=== PATIENT | female | born 1965 | race Caucasian/White ===

== ENCOUNTER 2018-01-12 18:36 | Emergency (ER) | payer BC ==
[~2018-01-12] VITALS: Ht 177.8 cm; Wt 59.1 kg
[~2018-01-12 18:36] MED LIST: Z.0.NO CURRENT MEDS
[2018-01-12 18:40] VITALS: BP 151/95; PULSE 114; RESP 18; TEMP 97.8; O2SAT 98
--- NOTE | 2018-01-12 20:09 | RADRPT ---
EXAM DATE/TIME: 01/12/2018 19:22 [facility] COMPARISON: No previous studies available for comparison. INDICATIONS : Syncope. MEDICAL HISTORY : None. SURGICAL HISTORY : ORIF left hip. ENCOUNTER: Initial ACUITY: 1 day PAIN SCORE: Non-responsive. LOCATION: Bilateral chest FINDINGS: PA and lateral views of the chest demonstrate the lungs to be symmetrically aerated without evidence of mass, infiltrate or effusion. The cardiomediastinal contours are unremarkable. Osseous structure s are intact. CONCLUSION: No acute disease. Felipe Fernandez MD on January 12, 2018 at 20:06 Board Certified Radiologist. This report was verified electronically.
--- NOTE | 2018-01-12 20:11 | RADRPT ---
EXAM DATE/TIME: 01/12/2018 19:27 [facility] COMPARISON: No previous studies available for comparison. INDICATIONS : Left sided hip pain after fall. MEDICAL HISTORY : None. SURGICAL HISTORY : ORIF left hip. ENCOUNTER: Initial ACUITY: 1 day PAIN SCORE: 4/10 LOCATION: Pelvis. FINDINGS: A single frontal view of the pelvis demonstrates lag screw fixation proximal left femur. No acute fra cture or dislocation. No bony destructive changes. CONCLUSION: 1. Fixation proximal left femur. No acute bony abnormality is present. Felipe Fernandez MD on January 12, 2018 at 20:07 Board Certified Radiologist. This report was verified electronically.
--- NOTE | 2018-01-12 20:12 | RADRPT ---
EXAM DATE/TIME: 01/12/2018 19:28 [facility] COMPARISON: No previous studies available for comparison. INDICATIONS : Left hip pain after fall. MEDICAL HISTORY : None. SURGICAL HISTORY : ORIF left hip. ENCOUNTER: Initial ACUITY: 1 day PAIN SCORE: 5/10 LOCATION: Left femur. FINDINGS: Two view examination of the left femur demonstrates a screw fixation proximal left femur. No acute nitesh ny abnormality. CONCLUSION: 1. Fixation proximal left femur. No acute bony abnormality. Felipe Fernandez MD on January 12, 2018 at 20:08 Board Certified Radiologist. This report was verified electronically.
--- NOTE | 2018-01-12 21:47 | PD ---
Physical Exam Date Seen by Provider: Jan 12, 2018 Time Seen by Provider: 21:14 Narrative 52-year-old female presents to the emergency department stating that she has been dizzy and falling for 6 months. She states she was seen previously at [facility] in September for the same. She states she has been having left hip pain with history of fracture. She is ambulatory in triage. She states that her pain has been ongoing since September. Patient states that she would like to be admitted and is requesting admission. Moderate severity. Current pain is 7/10. Data Data Last Documented VS Vital Signs Date Time Temp Pulse Resp B/P (MAP) Pulse Ox O2 Delivery O2 Flow Rate FiO2 01/12/18 18:40 97.8 114 18 151/95 (113) 98 Orders Orders Complete Blood Count With Diff (01/12/18 18:46) Comprehensive Metabolic Panel (01/12/18 18:46) Magnesium (Mg) (01/12/18 18:46) Ckmb (Isoenzyme) Profile (01/12/18 18:46) Troponin I (01/12/18 18:46) Act Partial Throm Time (Ptt) (01/12/18 18:46) Prothrombin Time / Inr (Pt) (01/12/18 18:46) Urinalysis - C+S If Indicated (01/12/18 18:46) Chest, Pa & Lat (01/12/18 18:46) Femur (Ap & Lat/2vws) (01/12/18 ) Lipase (01/12/18 18:46) Pelvis, Ap Only (Routine) (01/12/18 ) MDM Supervised Visit with DANGELO: No Narrative Course 52-year-old female presents to the emergency department for evaluation of dizziness and falling for 6 months. Patient was initially seen in triage. Workup is initiated. Patient did leave AGAINST MEDICAL ADVICE before she could be placed into a medical bed. Diagnosis Primary Impression: Left against medical advice Disposition: 07 AGAINST MEDICAL ADVICE Italia Burnett Jan 12, 2018 21:47
== END 2018-01-12 23:53 | disposition left against medical advice (07) ==
LOC: NED 18:36
DX: M25.552 Pain in left hip (principal); R42 Dizziness and giddiness
CPT/HCPCS: 71046; 72170; 73552; 99284